=== PATIENT | male | born 1955 | race American Indian/Alaskan Native ===

== ENCOUNTER 2019-02-05 07:40 | Day surgery (SDC) | payer OTHER ==
[2019-02-05] MEDS ORDERED: LIDOCAINE MPF (2%) 20 MG/1 ML VIAL 5 ML ONE (09:00)
[2019-02-05] MEDS ORDERED: SODIUM CHLORIDE 0.9% 1000 ML 1,000 ML ONE (09:07)
--- NOTE | 2019-02-05 09:45 | Anesthesia Day of Surgery ---
Anesthesia Day of Surgery - Day of Surgery Patient Examined: Yes Patient H&P Reviewed: Yes Patient is NPO: Yes
--- NOTE | 2019-02-05 09:45 | Anesthesia Consultation ---
Anesthesia Consult and Med Hx Date of service: 02/05/19 - Airway Anesthetic Teeth Evaluation: Good ROM Head & Neck: Adequate Mental/Hyoid Distance: Adequate Mallampati Class: Class III Intubation Access Assessment: Possibly Difficult - Pulmonary Exam CTA: Yes - Cardiac Exam Cardiac Exam: RRR - Pre-Operative Health Status ASA Pre-Surgery Classification: ASA2 Proposed Anesthetic Plan: MAC - Pulmonary Hx Smoking: No Hx Respiratory Symptoms: No - Cardiovascular System Hx Hypertension: Yes (took antihypertensives today) - Central Nervous System CVA: No - Endocrine Hx Renal Disease: No Hx Liver Disease: No Hx Insulin Dependent Diabetes: No Hx Non-Insulin Dependent Diabetes: No Hx Thyroid Disease: No
[2019-02-05] MEDS ORDERED: SODIUM CHLORIDE 0.9% 1000 ML 1,000 ML IV SCH (10:00)
[2019-02-05] MEDS ORDERED: fentaNYL 100 MCG/2 ML INJ ONE (10:06)
[2019-02-05] MEDS ORDERED: PROPOFOL 200 MG/20 ML VIAL IV ONE ×2 (10:06→10:07)
--- NOTE | 2019-02-05 11:04 | Procedure Note ---
Date of procedure: 02/05/19 Pre-op diagnosis: Dyspepsia/Colon Polyp Screening Post-op diagnosis: other (Mild to Moderate Erosive Esophagitis/Gastric Erosion (antrum)/Gastritis/Mild to Moderate Erosive Esophagitis/Multiple Colon Polyps ((Cecum-1,removed by snare polypectomy and retruieved with Pete net and Proximal Transverse Colon-2,removed by snare polypectomy and retrieved with a Pete net)/Multiple,Small (possibly Hyperplastic polyps) removed by cold biopsy from the Recto-Sigmoid area/Minor,Internal Hemorrhoid) Procedure: EGD with Biopsy/Colonoscopy with Snare Polypectomy (hot) and use of Pete Net to retrieve the polyps and cold biopsy Anesthesia: MAC Surgeon: NEMESIO BRITO Estimated blood loss: minimal Pathology: list Specimen disposition: to lab Condition: stable Disposition: same day (Avoid aspirin and NSAID for 4 days; otherwise resume home medication. Treat with PPI and follow up in 1 to 2 weeks ([phone]).)
--- NOTE | 2019-02-05 11:07 | Operative Report ---
PROCEDURE: Esophagogastroduodenoscopy with biopsy. INDICATIONS: This is a 63-year-old -[place] gentleman who has been having dyspeptic symptoms. EGD was done to assess for the problem. DESCRIPTION OF PROCEDURE: Procedure was done after getting informed consent with MAC anesthesia. Instrument was passed through the hypopharynx into the esophagus, which showed [id number] erosive esophagitis. Photo documentation and biopsy was obtained from the distal esophagus. Stomach showed antral erosion and gastritis. Biopsy was done from the gastric antrum and the gastric body. The pylorus is patent. The duodenum in the first and the second portion appeared normal. There was no gastric or duodenal ulcers noted. ASSESSMENT: Dyspepsia, gastric erosion, gastritis, [id number] erosive esophagitis. PLAN: To treat the patient with PPI, have the patient avoid aspirin and aspirin-related products for the next 4 days. Otherwise, resume home medication. Follow up in the office in 1-2 weeks' time and a colonoscopy will also be done as part of colon polyp screening. Procedure was done in the GI lab with assistance of the GI lab team, which included RN, Farzaneh Hobbs, as well as Suze stout, and assistance of anesthesia. JOB# [id number] DASHA/JESSICA
[2019-02-05 11:14] VITALS: BP 111/67
--- NOTE | 2019-02-05 11:28 | Operative Report ---
PROCEDURE: Colonoscopy. INDICATIONS: This is a 63-year-old -[place] gentleman who had been also complaining of some dyspeptic symptoms. He has an underlying history of hypertension. EGD had shown presence of gastritis, antral erosion in the stomach as well as [id number] erosive esophagitis. Biopsies were done to assess for H. pylori and also to assess for the severity of his erosive esophagitis. Colonoscopy was done as part of colon polyp screening. DESCRIPTION: Initial rectal exam was unremarkable. Instrument was passed through the rectum onto the cecum, which was identified with ileocecal valve and the retroverted view. Visualization was fair to good in the retroverted view. A 10-12 mm sessile polyp was noted that was removed by snare excision and retrieved with using a snare excision with heat application and was subsequently retrieved using a Pete net. Prior to that in the proximal transverse colon, there was also 10-12 mm polyps noted. This was also removed by snare polypectomy with application of heat and both were caught with a Pete net and then brought out with subsequent reintroduction of the scope and then there were several small polyps possibly hyperplastic that were noted in the rectosigmoid area that were removed by cold biopsy and the rectum showed some minor internal hemorrhoids on the retroverted view. There was minimal bleeding from the biopsy sites. No complications associated with the procedure. ASSESSMENT: Colon polyp screening, multiple large colon polyps noted, 1 in the cecum, 2 in the proximal transverse colon and several small possibly hyperplastic polyps in the rectosigmoid area as well as minor internal hemorrhoid. There was no diverticular disease noted and minimal bleeding associated with the polypectomy. No complications associated with the procedure. The patient will be asked to avoid aspirin and aspirin-related products for the next few days. Otherwise, resume home medication. The patient will be placed on Protonix because of the EGD findings of gastric erosion, gastritis, and [id number]-fc-iqypopsn erosive esophagitis and the patient will be asked to follow up in the office in 1-2 weeks' time. The procedure was done in the GI lab with assistance of the GI lab team, which included Farzaneh HENDRIX Regina and assistance of anesthesia. JOB# [id number] DASHA/JESSICA
--- NOTE | 2019-02-05 14:57 | Post Anesthesia Evaluation ---
- Post Anesthesia Evaluation Patient Participated: Yes Airway Patent: Yes Stable Respiratory Function: Yes Nausea/Vomiting: Yes Temp > 96.8F: No Pain Manageable: Yes Adequeate Hydration: Yes Anesthesia Complications: Yes Block Receding Appropriately: Not Applicable Patient on Ventilator: No
== END 2019-02-05 07:41 | disposition home or self-care (01) ==
LOC: GIO 07:40
DX: Z12.11 Encounter for screening for malignant neoplasm of colon (principal); K30 Functional dyspepsia; D12.3 Benign neoplasm of transverse colon; D12.0 Benign neoplasm of cecum; K62.1 Rectal polyp; K64.8 Other hemorrhoids; K29.70 Gastritis, unspecified, without bleeding; E78.00 Pure hypercholesterolemia, unspecified; K20.9 Esophagitis, unspecified; K31.89 Other diseases of stomach and duodenum; K27.9 Peptic ulcer, site unspecified, unspecified as acute or chronic, without hemorrhage or perforation; Z88.2 Allergy status to sulfonamides; Z79.899 Other long term (current) drug therapy; Z98.890 Other specified postprocedural states; Z88.8 Allergy status to other drugs, medicaments and biological substances
CPT/HCPCS: 43239; 45380; 45385; 88305; 88342; J2704; J3010; J7030